=== PATIENT | female | born 1955 | race Caucasian/White ===

== ENCOUNTER 2024-11-01 12:30 | Emergency (ER) | payer MEDICARE, OTHER, SELFPAY ==
[2024-11-01 12:50] VITALS: BP 134/49; PULSE 68; RESP 16; TEMP 37.1; O2SAT 98
[2024-11-01 12:58] LABS: EDUAAPPEAR Cloudy; EDUABILI Negative (Negative); EDUABLOOD 2+ (Negative); EDUACOLOR1 Yellow; EDUAGLUCOSE Negative (Negative); EDUAKETONE Trace (Negative); EDUALEUKO 3+ (Negative); EDUANITRATE Negative (Negative); EDUAPROTEIN Trace (Negative); EDUASPGRAVITY 1.005; EDUAUROBILI 0.2
--- NOTE | 2024-11-01 13:20 | ED_ITS ---
HPI - Female Genitourinary General Chief complaint: Urogenital-Female Stated complaint: uti symptoms Time Seen by Provider: 11/01/24 12:55 Source: patient and RN notes reviewed Mode of arrival: ambulatory Limitations: no limitations History of Present Illness HPI Narrative: 69-year-old female presents to [facility] complaining of urinary symptoms for 14 days. Patient reports having dysuria, increased frequency, suprapubic pressure, increase hesitancy, and vaginal discharge. Patient reports vaginal discharge has been occurring over the last couple months. Patient reports a thin white/troy is discharge that is foul smelling. Patient denies any fevers, abdominal pain, pelvic pain, vaginal bleeding, vaginal itchiness, body aches, chills, nausea, vomiting, diarrhea. Patient denies any concerns for STIs. Patient denies any significant past medical history. Related Data Allergies Allergy/AdvReac Type Severity Reaction Status Date / Time No Known Allergies Allergy Unverified 11/01/24 13:01 Review of Systems Review of Systems: CONSTITUTIONAL: Denies fever, chills, body aches, or sweats. EYES: Denies visual changes, redness, or discharge. ENT: Denies rhinorrhea, congestion, sore throat, or otalgia. CARDIOVASCULAR: Denies chest pain, palpitations, or edema. RESPIRATORY: Denies cough or dyspnea. GASTROINTESTINAL: Denies abdominal pain, nausea, vomiting, or diarrhea. GENITOURINARY: Positive for dysuria, increased frequency, hesitancy, vaginal discharge. Negative for hematuria, pelvic pain, vaginal itchiness, vaginal irritation, painful intercourse. SKIN: Denies rash or itching. MUSCULOSKELETAL: Denies back pain, joint pain, or myalgia. NEUROLOGIC: Denies headache, numbness, or weakness. PSYCHIATRIC: Denies anxiety or depression. All other systems reviewed are negative, except as documented in HPI. [facility] [place] Family History Family History Mother Depression Family history of lung cancer Father Family history of Alzheimer's disease Family history of heart disease in male family member before age 55 Social History Social History Alcohol intake: current Comments At the time of my signature, I reviewed and agree with the nursing past medical, surgical, social, and family history. There is no relevant family history pertinent to the patient complaint. Exam Narrative: GENERAL: This is a well-nourished, well-developed adult, in no apparent distr ess. They are non ill-appearing, nontoxic appearing. HEAD: normocephalic, atraumatic. EYES: Sclera clear/white. Vision is grossly intact. Conjunctiva normal bilaterally. Extraocular movements intact. EARS: External ears normal,Hearing grossly intact. NOSE: External nose normal THROAT: Mucous membranes moist NECK: Normal range of motion CARDIOVASCULAR: Regular rate and rhythm. Normal S1-S2. No clicks, gallops, rubs, murmurs. RESPIRATORY: Respiratory rate normal, respiratory effort nonlabored, no respiratory distress. Lung sounds clear to auscultation throughout. Lung sounds equal bilaterally. No adventitious lung sounds. GASTROINTESTINAL: Abdomen soft, flat, mild suprapubic tenderness to palpation, nondistended. Bowel sounds are active. No hepato-splenomegaly, or palpable masses. No guarding or rigidity. No rebound tenderness. GENITOURINARY: Patient declined pelvic exam. SKIN: warm, Dry, intact with no suspicious lesions or rash, good texture and turgor. NEURO: awake, alert, and oriented to person, place and time. There were no obvious focal neurologic abnormalities. EXTREMITIES: No joint tenderness, effusion, or edema noted. BACK: Nontender without deformity. No CVA tenderness. Course Course Emergency Course: Portions of this record may have been created with voice recognition software Level of Care: Express Care Visit Vital Signs Vital signs: Vital Signs Temperature 98.7 F 11/01/24 12:50 Pulse Rate 68 11/01/24 12:50 Respiratory Rate 16 11/01/24 12:50 Blood Pressure 134/49 L 11/01/24 12:50 Pulse Oximetry 98 11/01/24 12:50 Temperature 98.7 F 11/01/24 12:50 Pulse Rate 68 11/01/24 12:50 Respiratory Rate 16 11/01/24 12:50 Blood Pressure 134/49 L 11/01/24 12:50 Pulse Oximetry 98 11/01/24 12:50 MDM - Female Genitourinary MDM Narrative Medical decision making narrative: Urine dipstick shows evidence of urinary tract infection. Urine culture pending. Patient's symptoms are also consistent with bacterial vaginosis as. Patient denies any sexual contacts or any concerns for STIs. Offered patient pelvic exam to further assess her vaginal discharge and she declined. Patient would like to be treated for bacterial vaginosis as well. Will treat UTI with cephalexin and will treat presumptive bacterial vaginosis with metronidazole. Discussed physical exam findings. Advised supportive measures and signs/symptoms to go to the ER. Pt is appropriate for outpt treatment and f/u. Differential Diagnosis Differential diagnosis: Likely urinary tract infection, bacterial vaginosis, vaginitis, cystitis and other (Pyelonephritis, vaginal yeast infection) Lab Data Attestation: I reviewed the patient's lab results. Labs: Lab Results 11/01/24 Range/Units 12:56 POC Urine Color Yellow POC Urine Clarity Cloudy POC Urine pH 6.0 POC Ur Specif [place] 1.005 POC Urine Protein Trace (Negative) POC Ur Glucose (UA) Negative (Negative) POC Urine Ketones Trace (Negative) POC Urine Blood 2+ (Negative) POC Urine Nitrite Negative (Negative) POC Urine Bilirubin Negative (Negative) POC Urine Urobilinogen 0.2 POC U Leukocyte Esteras 3+ (Negative) Discharge Plan Discharge Clinical Impression: Bacterial vaginosis Urinary tract infection Qualifiers: Urinary tract infection type: site unspecified Hematuria presence: with hematuria Qualified Code(s): N39.0 - Urinary tract infection, site not specified Patient Disposition: Home Condition: Stable Instructions: Antibiotic Form, Urinary Tract Infection in Older Adults (ED) Additional Instructions: Take the cephalexin as prescribed, please finish the course antibiotics seemed if you start to feel better. The urine will be sent of for a culture to identify what type of bacteria is causing your infection. If the culture shows that the antibiotic will not get rid of your infection, you will be notified and a new antibiotic will be called in for you. Increase water intake Your symptoms also sound consistent with bacterial vaginosis. Take metronidazole as directed for bacterial vaginosis. Please follow-up with your OBGYN if the vaginal discharge or symptoms do not improve. Do not drink alcohol with metronidazole as it may react with the antibiotic and make you sick causing severe nausea and vomiting. you will need to follow up with your PCP 3-5 days. Go to the ER for any worsening symptoms, abdominal pain, fevers, nausea, vomiting, unable to urinate, concerns for urinary retention, or any other concerns Patient Language: [place] Prescriptions: New metronidazole 500 mg tablet 500 mg PO BID 7 Days Qty: 14 0RF cephalexin 500 mg capsule 500 mg PO BID 5 Days Qty: 10 0RF Follow-up/Referrals: PHYSICIAN,NEURORADIOLOGIST [Primary Care Provider] - Time of Disposition: 13:08
== END 2024-11-01 13:18 | disposition home or self-care (01) ==
DX: N76.0 Acute vaginitis (principal); N39.0 Urinary tract infection, site not specified
CPT/HCPCS: 81003; 87077; 87086; 87186; 99203; G0463